=== PATIENT | male | born 1985 | race Caucasian/White ===

== ENCOUNTER 2021-01-24 05:43 | Day surgery (SDC) | payer OTHER ==
[~2021-01-24] VITALS: Ht 180.3 cm; Wt 95.9 kg
[2021-01-24 06:06] LABS: CALC OSMOLALITY 282 mosm/kg (275-300); CALCIUM 8.4 mg/dL (8.5-10.1); CARBON DIOXIDE 26.2 mmol/L (21.0-32.0); CHLORIDE - SERUM 105 mmol/L (98-107); GLUCOSE 112 mg/dL (74-106); POTASSIUM - SERUM 3.6 mmol/L (3.5-5.1); SODIUM 142 mmol/L (136-145); UREA NITROGEN 10 mg/dL (7-18); eGFR NON AFRICAN AMERICAN > 90 mL/min (90-120)
[2021-01-24 06:10] LABS: BASOPHILS 0.6 % (0-2); EOSINOPHILS 5.2 % (0-7); HEMATOCRIT 43.3 % (42.0-54.0); HEMOGLOBIN 15.1 g/dL (13.5-17.5); MCH 31.9 pg (26.0-34.0); MCHC 34.8 g/dL (31.0-37.0); MCV 91.6 fL (80.0-100.0); MEAN PLATELET VOLUME 8.4 fL (7.4-10.4); MONOCYTES 8.5 % (2-11); NEUTROPHILS 58.7 % (40-80); PLATELET COUNT 179 10x3/uL (130-400); RBC 4.73 10x6/uL (4.20-6.10); RDW 12.9 % (11.5-14.5); WBC 4.6 10x3/uL (4.8-10.8)
[2021-01-24] MEDS ORDERED: MULTI-DAY VITAM1 TAB PO (07:01)
[2021-01-24] MEDS ORDERED: PROTONIX40 MG PO (07:02)
[2021-01-24 07:09] VITALS: BP 137/82; Ht 180.3 cm; Wt 95.9 kg
--- NOTE | 2021-01-24 09:55 | NUR ---
DC TEACHING COMPLETE TO PT AND , VERBALIZED UNDERSTANDING. PIV REMOVED, CATHETER INTACT. PT DRESSING. DR MANJARREZ SPOKE WITH IN BETWEEN PTS PROCEDURES. PT DC'D VIA WC ACCOMPANIED BY PEBBLES TO POV WITH ALL BELONGINGS AND DC PACKET. DRIVING.
--- NOTE | 2021-01-28 14:49 | OP ---
PATIENT NAME: ANGI DOLAN MEDICAL RECORD: [id number] :89 LOCATION:D.OPS ADMISSION DATE: SURGEON: VALERIY MANJARREZ MD DATE OF OPERATION: 01/24/2021 PREOPERATIVE DIAGNOSES: 1. Gastroesophageal reflux disease. 2. Hiatal hernia. POSTOPERATIVE DIAGNOSES: 1. Gastroesophageal reflux disease. 2. Hiatal hernia. PROCEDURE: EGD with biopsy and manometry catheter placement. SURGEON: Valeriy Manjarrez MD REPORT OF PROCEDURE: An Olympus endoscope was advanced through the patient's mouth and esophagus. We passed through the stomach and pylorus into the duodenum. There were no signs of any masses, lesions or ulcerations. As we pulled the scope back, we could seed the body and antrum of the stomach and there were no masses, ulcerations or lesions. A retroflex view of the stomach near the fundus showed that there was a moderate-sized hiatal hernia, it was about 4 cm in length and it appeared to be widely open through the esophageal hiatus. As we pulled the scope back, there was a lot of inflammatory changes with ulcerations on the distal third of the esophagus. A random biopsy was taken on the distal third of the esophagus. The esophagus measured out at 41 cm from the teeth. As we pulled the scope back, there are no signs of any masses, ulcerations or strictures of the patient's esophagus. We then inserted an esophageal manometry catheter through the right naris. It was advanced with ease. After it was in place, then we inserted the endoscope and could see that the catheter was passing through the GE junction into the stomach. At this point, the scope and the insufflation were removed. COMPLICATIONS: None. CONDITION: Stable. ANESTHESIA: TIVA. BLOOD LOSS: Minimal. TRANSINT:[id number] Voice Confirmation ID: [id number] DOCUMENT ID: [id number] VALERIY MANJARREZ MD at 1449 CC: HOLLY GARCIA MD [id number] DICTATION DATE: 01/24/21828 CONDUIT MECHANIC: 01/24/2148 [facility] 01/24/21 [place] [address]
== END 2021-01-24 10:02 | disposition home or self-care (01) ==
LOC: D.OPS 05:43
PROVIDERS: ATTEND Surgery
DX: K21.9 Gastro-esophageal reflux disease without esophagitis (principal); K44.9 Diaphragmatic hernia without obstruction or gangrene; R13.10 Dysphagia, unspecified